=== PATIENT | female | born 1935 | race Caucasian/White ===

== ENCOUNTER 2019-07-01 16:57 | Inpatient (IN) ==
--- NOTE | 2019-07-01 18:09 | PROVIDER DOCUMENTATION ---
HPI-General Adult - General Chief Complaint: Constipation Stated Complaint: SYNCOPE, CONSTIPATION, SHOWING SIGNS OF PAIN, Time Seen by Provider: 07/01/19 17:58 Source: family Allergies/Adverse Reactions: Patient Allergies Allergy/AdvReac Type Severity Reaction Status Date / Time Iodinated Contrast Media Allergy Unknown Unknown Verified 07/01/19 20:16 diazepam [From Valium] Allergy Unknown Verified 07/01/19 20:16 erythromycin base Allergy Unknown Verified 07/01/19 20:16 gabapentin [From Neurontin] Allergy Unknown Verified 07/01/19 20:16 hydroxychloroquine sulfate * Allergy Unknown Verified 07/01/19 20:16 [From Plaquenil] oxcarbazepine Allergy Unknown Verified 07/01/19 20:16 [From Trileptal] prochlorperazine edisylate * Allergy Unknown Verified 07/01/19 20:16 [From Compazine] prochlorperazine maleate * Allergy Unknown Verified 07/01/19 20:16 [From Compazine] promethazine HCl * Allergy Unknown Verified 07/01/19 20:16 [From Phenergan] Sulfa (Sulfonamide Allergy Unknown Verified 07/01/19 20:16 Antibiotics) Tetracyclines Allergy Unknown Verified 07/01/19 20:16 donepezil HCl * AdvReac Unknown Verified 07/01/19 20:16 [From Aricept] triamterene AdvReac Unknown Verified 07/01/19 20:16 Home Medications: Home Medication List Medication Instructions Recorded Confirmed Last Taken Type Apixaban [Eliquis] 2.5 mg PO DAILY 07/01/19 07/01/19 Unknown History Cholecalciferol (Vitamin D3) 1 cap PO DAILY 07/01/19 07/01/19 Unknown History [Vitamin D3] Cyanocobalamin (Vitamin B-12) 1,000 mg PO DAILY 07/01/19 07/01/19 Unknown History [Vitamin B12] Magnesium Oxide [Magnesium] 400 mg PO DAILY 07/01/19 07/01/19 Unknown History Melatonin 1 mg PO QPM 07/01/19 07/01/19 Unknown History - History of Present Illness -Gen Adult Nature of Presenting Problems: 83 YOF WITH PMH OF SEVERE DEMENTIA PRESENTS WITH MULTIPLE COMPLAINTS, CONSTIPATION X 3 DAYS, FEVER, EPISODE OF HYPOTENSION AND PRESYNCOPE BP NOTED AT HOME TO BE 60S/40S. THE PATIENT IS UNABLE TO COMMUNICATE DUE TO SEVERE DEMENTIA AND REPEATS "I JUST WANT MY BABY". 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 DAUGHTER ALSO REPORTS A FALL TODAY. NO LOC, PT IS ON BLOOD THINNER Location of Pain/Injury: reports: other (PATIENT UNABLE TO REPORT) Onset/Duration: reports: 3 days ago Timing: reports: still present Context/Activities at Onset: reports: none Modifying Factors: improves with: nothing Associated Symptoms: reports: denies symptoms Similar Symptoms Previously?: No Recently seen or treated by another doctor?: No Review of Systems - Adult - REVIEW OF SYSTEMS - ADULT ROS:: ROS per family Constitutional: reports: fever. denies: no symptoms reported, see HPI, chills, fatique, night sweats, weight gain, weight loss, other Eyes: reports: no symptoms reported. denies: see HPI, discharge, dry eyes, decreased vision, blurred vision, double vision, eye pain, redness, other Ears, Nose, Mouth & Throat: reports: no symptoms reported. denies: see HPI, ear discharge, ear pain, hearing loss, tinnitus, epistaxis, sinus problem, nose pain, loose teeth, mouth/dental pain, mouth swelling, hoarseness, throat pain, throat swelling, other Cardiovascular: reports: see HPI, irregular heart rate (HAS PPM), syncope (HOME BP PER DAUGHTER 60S/40S) Respiratory: reports: no symptoms reported. denies: see HPI, chronic cough, cough, dyspnea on exertion, excessive sputum production, hemoptysis, pleurisy, shortness of breath, wheezing, other Gastrointestinal: reports: constipation. denies: no symptoms reported, see HPI, abdominal pain, hematemesis, diarrhea, difficulty swallowing, frequent heartburn, nausea, poor appetite, rectal bleeding, vomiting, other Genitourinary: reports: no symptoms reported. denies: see HPI, dysuria, discharge, frequency, flank pain, frequent UTI's, hematuria, hesitency, incontinence, urinary retention, urgency, other Musculoskeletal: reports: no symptoms reported. denies: see HPI, bone pain, back pain, frequent leg cramps, joint pain, joint swelling, muscle aches, muscle weakness, neck pain, other Integumentary: reports: no symptoms reported. denies: see HPI, hives, hair loss, itching, mole changes, nail changes, rash, skin sores/ulcer, skin thickening, other Neurological: reports: no symptoms reported. denies: see HPI, ataxia, dizziness/vertigo, headache/migraines, loss of balance, numbness, paresthesia, seizure, slurred speech, syncope, tremors, other Psychiatric: reports: no symptoms reported. denies: see HPI, anxiety, anti- depressant use, alcohol/drug dependence, depression, emotional problems, insomnia, panic attacks, suicidal thoughts, other Endocrine: reports: no symptoms reported. denies: see HPI, change in skin pigment, excessive sweating, goiter, cold intolerance, heat intolerance, increased hunger, increased thirst, polyuria, other Hematologic/Lymphatic: reports: no symptoms reported. denies: see HPI, blood clots, easy bruising, low blood count, lymphedema, prolonged bleeding, swollen lymph nodes, transfusions, other Allergic/Immunologic: reports: no symptoms reported. denies: see HPI, allergic reactions, allergic rhinitis, asthma, eczema, food allergy, frequent infections, hay fever, hives, positive PPD, urticaria, other Past History - Adult - PAST MEDICAL HISTORY-ADULT Review of Records: reports: Nursing Assessment Review, Social history reviewed & non-contributory. Major Childhood Illnesses: reports: denies history Gastrointestinal: reports: pancreatitis Neurological: reports: dementia Other Conditions: reports: other cancer (skin, breast) - PRIOR SURGERIES/PROCEDURES Surgical/Procedure History: reports: hysterectomy, other (mastectomy, bladder repair) - IMMUNIZATION STATUS Childhood Immunizations: See Nurse Assessment Flu Vaccine: See Nurse Assessment Physical Exam-General - PHYSICAL EXAM-ADULT Initial Vital Signs Reviewed: Yes - CONSTITUTIONAL General Appearance: alert, no apparent distress - EYES Eyes: PERRL/EOMI, pink conjunctivae - HEAD, EARS, NOSE, MOUTH & THROAT HENMT: normocephalic/atraumatic, moist mucous membranes - NECK Neck: non-tender, full range of motion, supple - RESPIRATORY Respiratory: chest non-tender, lungs clear, normal breath sounds, no pleuratic chest pain, no respiratory distress, no accessory muscle use - CARDIOVASCULAR Cardiovascular: normal peripheral pulses, no edema, no gallop, no JVD, no murmur - GASTROINTESTINAL (ABDOMEN) Abdominal Exam: non tender, soft - LYMPHATIC Lymphatic: no adenopathy - MUSCULOSKELETAL Back Exam: normal inspection Extremity: non-tender. negative: normal gait (IN WHEELCHAIR) Peripheral Pulses: radial (R): 2+, radial (L): 2+ - SKIN Integumentary: normal color, normal turgor, warm/dry - NEUROLOGIC Neurologic: grossly normal - PSYCHIATRIC Psych/Mental Status: normal mood/affect, disoriented x 3 Progress - PLAN OF CARE/RESULTS Progress/Plan/Lab Results: Vital Signs - 8 hr 07/01/19 17:17 Temperature 99.7 F H Pulse Rate 93 H Respiratory Rate 18 Blood Pressure 157/89 O2 Sat by Pulse Oximetry 100 Orders Category Date Time Status CT HEAD W/O CONTRAST [CT] Stat Exams 07/01/19 18:03 Ordered FLAT/UPRIGHT ABD/1 VIEW CHEST [RAD] Stat Exams 07/01/19 17:24 Ordered CBC WITH ELECTRONIC DIFF [HEME] Stat Lab 07/01/19 18:03 Uncollected CK PROFILE [SP CHEM] Stat Lab 07/01/19 18:04 Ordered COMPREHENSIVE METABOLIC PANEL [CHEM] Stat Lab 07/01/19 18:03 Uncollected TROPONIN T Stat Lab 07/01/19 18:[address] W/POSS RFLX CULT [URINALYSIS] Stat Lab 07/01/19 17:24 Uncollected EKG [EKG] Stat Ther 07/01/19 18:03 Ordered Result Diagrams: 07/01/19 19:07 07/01/19 19:07 - XRAY 1 XRAY Study: Abdomen Impression: See EMR Report ( EXAM: FLAT/UPRIGHT ABD/1 VIEW CHEST 07/01/2019 HISTORY: constipation fever TECHNIQUE: Flat and upright abdomen with AP chest COMMENT: The heart size is enlarged. There are some fibrotic appearing opacities present in the lung bases particularly on the right which have not changed since 12/31/2018. There is stool throughout much of the colon. The stomach is not distended. There is no evidence of small bowel dilatation. There has been cholecystectomy. No evidence of organomegaly or mass is present. IMPRESSION: Constipation. Electronically signed by Massimo Mckeon 07/01/2019 6:57 PM 07/01/19 670 Interpreting Physician: Massimo Mckeon MD Dictated Date/Time: 07/01/19 3397 cc: Talat Eden MD; Dayday Vargas MD) - CT/MRI 1 CT Study: Head Impression: See EMR Report (EXAM: CT HEAD W/O CONTRAST 07/01/2019 HISTORY: FALL TECHNIQUE: This exam was performed using automated exposure control, adjustment of mA or kV according to patient size, and/or use of iterative reconstruction technique. COMMENT: There is no evidence of mass effect, bleed, or abnormal extra-axial fluid collection. There is moderate cerebral atrophy. There is generalized periventricular white matter lucency. These findings were also present on 02/05/2019. The paranasal sinuses are clear. The calvarium is intact. IMPRESSION: Stable CT of the head. Electronically signed by Massimo Mckeon 07/01/2019 6:44 PM 07/01/191843 Interpreting Physician: Massimo Mckeon MD Dictated Date/Time: 07/01/191841 cc: Beth Nance; Dayday Vargas MD) - CONSULTS/PCP/HOSPITALIST Notification #1 *Consult/PCP/Hospitalist*: dr pandey Time Discussed: 21:10 Consult Disposition: Admit Departure - Departure Date of Disposition Decision: 07/01/19 Time of Disposition Decision: 21:10 DIAGNOSIS: UTI (urinary tract infection), Constipation, Dementia Disposition: HOME 01 Certified Medical Emergency: Emergent Condition: Fair Referrals and Follow-Ups: Dayday Vargas MD [Primary Care Provider] - - Critical Care Note This patient required my direct & personal management of CC.: No Attestation - Physician/ EDWARD Attestation Patient care was provided by Advanced Practice Provider:: Yes Advanced Practice Provider:: Beth Nance Advanced Practice Provider documentation review:: The Mid-level provider documentation, treatment plan and medical decision making was reviewed by the physician who agrees with all treatment and medical decision making by the MLP. The physician spent face to face time with patient:: No Advanced Practice Provider documentation review:: Supervising physician onsite and consulted in the evaluation and care of this patient. The physician did not have a face to face encounter with the patient.
--- NOTE | 2019-07-01 18:47 | Diag Imaging Result Doc PS360 ---
EXAM: CT HEAD W/O CONTRAST 07/01/2019 HISTORY: FALL TECHNIQUE: This exam was performed using automated exposure control, adjustment of mA or kV according to patient size, and/or use of iterative reconstruction technique. COMMENT: There is no evidence of mass effect, bleed, or abnormal extra-axial fluid collection. There is moderate cerebral atrophy. There is generalized periventricular white matter lucency. These findings were also present on 02/05/2019. The paranasal sinuses are clear. The calvarium is intact. IMPRESSION: Stable CT of the head. Electronically signed by Massimo Mckeon 07/01/2019 6:44 PM
--- NOTE | 2019-07-01 19:00 | Diag Imaging Result Doc PS360 ---
EXAM: FLAT/UPRIGHT ABD/1 VIEW CHEST 07/01/2019 HISTORY: constipation fever TECHNIQUE: Flat and upright abdomen with AP chest COMMENT: The heart size is enlarged. There are some fibrotic appearing opacities present in the lung bases particularly on the right which have not changed since 12/31/2018. There is stool throughout much of the colon. The stomach is not distended. There is no evidence of small bowel dilatation. There has been cholecystectomy. No evidence of organomegaly or mass is present. IMPRESSION: Constipation. Electronically signed by Massimo Mckeon 07/01/2019 6:57 PM
[2019-07-01 19:17] LABS: BASO# 0.01 X1000 (0.0-0.2); BASO% 0.1 % (0.0-0.8); HEMATOCRIT 41.6 % (37.0-47.0); HEMOGLOBIN 13.4 g/dL (12.0-16.0); IMM GRAN# 0.02 X1000 (0.0-0.04); IMM GRAN% 0.3 % (0.0-0.5); LYMPH# 1.05 X1000 (1.2-3.4); LYMPH% 15.7 % (20.5-51.1); MCH 30.9 PG (27-31); MCHC 32.2 g/dL (33-37); MCV 96.1 FL (81-99); MONO% 7.5 % (1.7-9.3); MPV 10.3 FL (7.4-10.4); NEUT% 76.4 % (42.2-75.2); PLT 194 X1000 (130-400); RBC 4.33 XMIL (4.2-5.4); RDW 14.4 % (11.5-14.5); WBC 6.68 X1000 (4.8-10.8)
[2019-07-01 19:40] LABS: AGAP 9; ALBUMIN 4.1 g/dL (3.5-5.0); ALKALINE PHOSPHATASE 97 U/L (32-104); BUN 13 mg/dL (8-22); CALCIUM 9.3 mg/dL (8.8-10.2); CHLORIDE 105 mmol/L (98-107); CK PROFILE 129 U/L (24-173); COSMO 278; CREATININE 0.4 mg/dL (0.5-0.9); ESTIMATED GFR > 60; GLUCOSE 136 mg/dL (70-104); GOT 28 U/L (10-30); GPT 35 U/L (10-36); POTASSIUM 4.2 mmol/L (3.5-5.1); SODIUM 138 mmol/L (136-145); TCO2 24 mmol/L (25-35); TOTAL PROTEIN 7.3 g/dL (6.3-8.3)
[2019-07-01 20:44] LABS: BILIRUBIN URINE NEGATIVE (NEGATIVE); BLOOD URINE 3+ (NEGATIVE); CLARITY VERY CLOUDY (CLEAR); COLOR YELLOW; GLUCOSE URINE NEGATIVE (NEGATIVE); KETONE URINE TRACE mg/dL (NEGATIVE); LEUKOCYTES URINE 2+ (NEGATIVE); NITRITE URINE POSITIVE (NEGATIVE); PH URINE 6.5; PROTEIN URINE TRACE mg/dL (NEGATIVE); SP GRAVITY URINE 1.015; UROBILINOGEN URINE NORMAL
[2019-07-01 20:45] LABS: URINE BACTERIA 4+ /HFP; URINE EPITHELIAL CELLS <10 /HPF (<10); URINE SOURCE CATH
[2019-07-01] MEDS ORDERED: ROCEPHIN 1 GM in NS 50 ML IV ONE (21:07)
[2019-07-01] MEDS ORDERED: NS 1,000 ML IV ONE (21:11)
--- NOTE | 2019-07-01 22:48 | EKG Report ---
Test Performed on : 07/01/2019 8:13:55 PM Test Reason : SYNCOPAL EPISODE Blood Pressure : / mmHG Vent. Rate : 080 BPM Atrial Rate : 082 BPM P-R Int : 000 ms QRS Dur : 070 ms QT Int : 366 ms P-R-T Axes : 000 029 082 degrees QTc Int : 422 ms Accelerated Junctional rhythm. Minimal voltage criteria for LVH, may be normal variant Septal infarct , age undetermined Abnormal ECG No previous ECGs available Unconfirmed Result
[2019-07-02] MEDS ORDERED: TYLENOL PO PRN (08:00)
[2019-07-02] MEDS ORDERED: ZOFRAN IV PRN (08:00)
[2019-07-02] MEDS ORDERED: DULCOLAX PR ONE (08:32)
--- NOTE | 2019-07-02 08:57 | Diag Imaging Result Doc PS360 ---
EXAM: ANKLE 2 VIEWS LEFT - 07/02/2019 HISTORY: swelling TECHNIQUE: Portable left ankle two views COMPARISON: None. FINDINGS: There is soft tissue swelling over the ankle. There is no fracture or dislocation identified. There are no erosive or destructive changes identified. There are possibly mild degenerative changes. There are vascular calcifications noted. IMPRESSION: Soft tissue swelling. No visible acute bony abnormality. Electronically signed by Ashok Abbasi 07/02/2019 8:54 AM
--- NOTE | 2019-07-02 09:45 | EKG Report ---
Test Performed on : 07/02/2019 09:35:59 AM Test Reason : morenoal germán Blood Pressure : / mmHG Vent. Rate : 060 BPM Atrial Rate : 250 BPM P-R Int : 170 ms QRS Dur : 078 ms QT Int : 440 ms P-R-T Axes : 033 032 054 degrees QTc Int : 440 ms Atrial-paced rhythm Minimal voltage criteria for LVH, may be normal variant Abnormal ECG When compared with ECG of 01-JUL-2019 20:13, (Unconfirmed) Electronic atrial pacemaker has replaced Junctional rhythm. Confirmed by Anibal Eng MD ([id number]) on 07/07/2019 7:50:31 AM
--- NOTE | 2019-07-02 09:53 | Vascular Study Report ---
EXAM: Venous U/S Bilateral Legs - 07/02/2019 HISTORY: LE swelling; hx of dvt TECHNIQUE: Bilateral lower extremity Doppler venous ultrasound COMPARISON: 12/25/2015 FINDINGS: The left superficial femoral vein demonstrates filling defect, with decreased flow and decreased compressibility. This is compatible with thrombus. The remainder of the deep veins of left lower extremity demonstrate flow and compressibility, without filling defects. The deep veins of the right lower extremity demonstrate flow and compressibility, without filling defects. IMPRESSION: Deep venous thrombosis in the left superficial femoral vein. No evidence of right lower extremity deep venous thrombosis. Electronically signed by Ashok Abbasi 07/02/2019 9:50 AM
--- NOTE | 2019-07-02 11:53 | HISTORY AND PHYSICAL ---
PRIMARY CARE PROVIDER: Dr. Dayday Vargas. DOOR MANAGER: [facility] [place]. CHIEF COMPLAINT: Fall, low blood pressure. HISTORY OF PRESENT ILLNESS: Ms. Bren Nava is an 83-year-old female with a medical history of end-stage dementia that she has had at least 6 or 7 years. She is verbal, but never oriented. She was at her normal baseline mentation up until yesterday morning when she was awoke. She was more moaning and groaning, and the family felt like she was having more constipation and pain from that. She had a Cardiology appointment that she went to yesterday evening for a pacemaker check. She, prior to that, had been given a suppository by her caregiver, which she did have a bowel movement, but it was small, and apparently had gotten up, had a blood pressure that dropped to the 60s/40s, and fell out, did not hit her head, so she was brought to the emergency department, where she was found to have a significant urinary tract infection, currently positive gram-negative rods, being treated with Rocephin. Also noted that there is more swelling in the left leg, and pain in the left ankle, but the left ankle only showed soft tissue swelling. No fracture. An ultrasound showed that she had an old DVT in the left femoral superficial vein, which she is on Eliquis for. It is also noted that she has a contracted right upper extremity that has been that way for a few years. Never officially diagnosed with stroke, and her head CT that was performed did not show any acute findings, but it only showed chronic findings reported as moderate cerebral atrophy. She is able to walk around at home normally, and usually has someone that walks with her to keep her from losing her balance. She is very active. She does not stay in bed very often. She actually walks the house frequently. She does have issues with constipation, for which the x-ray shows she is constipated, which we will start something for that as well. Normally eats a pureed diet. Will get that started. Otherwise, will be treating her for the significant urinary tract infection. Will also check her blood pressure orthostatics to evaluate if she still having orthostatic hypotension. PAST MEDICAL HISTORY: 1. End-stage dementia for 6 to 7 years. No medication for this. 2. Left breast cancer with a mastectomy in 1987. 3. Skin cancer on the nose that was removed. 4. Pancreatitis in the past. 5. Hypertension. 6. History of bradycardia with pacemaker placement. 7. 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 8. Left femoral superficial DVT since 2018. 9. Diverticulosis. PAST SURGICAL HISTORY: 1. Hysterectomy. 2. Left mastectomy in 1987. 3. Bladder repair post baby deliveries. 4. Skin cancer excision. SOCIAL HISTORY: Lives with her daughter for the last 4 years. Never smoked, never drank, never did illicit drugs. Is able to walk with minimal assistance, and is very active, and is able to eat without difficulties as well. Apparently, she does have to be fed though, a pureed diet. FAMILY HISTORY: Mother had gastrointestinal issues. She at 81. Her father had [place], and in his 60s. ALLERGIES: Iodine, diazepam, erythromycin, Neurontin, Plaquenil, Trileptal, Compazine, Phenergan, sulfa drugs, tetracyclines, Aricept, and triamterene. HOME MEDICATIONS: 1. Eliquis 2.5 mg p.o. daily. 2. Vitamin D3 one p.o. daily. 3. Vitamin B12, 1000 mg p.o. daily. 4. Magnesium oxide 400 mg p.o. daily. 5. Melatonin 1 mg p.o. nightly. REVIEW OF SYSTEMS: Unable to obtain as the patient is unable to verbalize her needs. PHYSICAL EXAMINATION: VITAL SIGNS: Temperature 99.7 degrees, heart rate 58, respiratory rate 16, blood pressure 139/46, O2 saturation 96% on room air. GENERAL: Ms. Bren Nava is an 83-year-old female. She will look at speaker who says her name, but has random responses to questions. HEENT: Atraumatic, normocephalic. Pupils are equal and reactive. Unable to assess for extraocular movements as she does not follow commands. Oral airway is dry. NECK: Trachea midline. CARDIOVASCULAR: S1, S2. Regular rate and rhythm. No rubs, gallops, murmurs. Swelling in the left ankle, but essentially no edema. There are +2 dorsalis and radial pulses. Negative JVD or carotid bruits. PULMONARY: Clear to auscultation. Bilateral breath sounds. No accessory muscle use or work of breathing noted. GASTROINTESTINAL: Soft, nontender, nondistended. Positive bowel sounds x4. EXTREMITIES: Right arm contracted with some movement. Movement in all the other extremities appears to be equal, but she will not follow commands. She does have spontaneous movements of all other extremities. NEUROLOGIC: Not oriented, confused conversation or conversation that is consistent with end-stage dementia. SKIN: Warm, dry, intact, except for left forearm. There are 2 spots. One looks like a little small hematoma, and the other one looks like a very small skin tear. No signs of infection on that. LABORATORY DATA: White blood cells 6000, hemoglobin 13, hematocrit 41, platelet count 194,000. Sodium 138, potassium 4.2, BUN 13, creatinine 0.4, glucose 136, calcium 9.3. Bilirubin 0.30, AST 28, ALT 35. CK 129. Troponin less than 0.01. Albumin 4.1. Plasma lactate 1.0. Urinalysis: Very cloudy, trace protein, 3+ blood, positive nitrites, 10 to 20 microscopic red blood cells, 2+ white blood cells, microscopic white blood cells 10 to 20, bacteria 4+. IMAGING: Abdominal x-ray: Constipation. Head CT: Stable head CT. No acute. It did show moderate cerebral atrophy. Ankle x-ray on the left: Soft tissue swelling. No visible acute bony abnormality. Venous ultrasound: DVT in the left superficial vein. No evidence of right lower extremity DVT. EKGs: This one says accelerated junctional rate of 80, QTc 422. Repeat for today shows atrially paced rhythm, rate 60, QTc 440. ASSESSMENT AND PLAN: 1. Fall, likely secondary to either vasovagal or orthostatic hypotension. Will get orthostatic vital signs every 12 hours to evaluate, and will also give her some intravenous fluid hydration. She is not on any medications that would initiate this type of symptom. She did receive a suppository, so it could have been where she bear down and it caused that, which caused a fall. She did not hit her head, but head CT was negative for any acute findings. 2. Left ankle pain after fall yesterday. Imaging is negative for any injury as far as fractures, but there is soft tissue swelling. 3. Left superficial femoral vein deep venous thrombosis that is old in appearance. She is on Eliquis, and will continue that. 4. Constipation. No bowel movement in 4 days, except she did have a small one yesterday. Will give a bisacodyl suppository. Will also start MiraLAX daily. 5. Urinary tract infection, already with gram-negative rods growing, most likely is probably Escherichia coli, but again, she is on Rocephin for this. 6. Hypertension, but no home medications. 7. History of bradycardia with pacemaker in place. 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 8. History of diverticulitis with diverticulosis. No abdominal complaints at this time, just with constipation. 9. Deep venous thrombosis prophylaxis. Sequential compression devices, but is on Eliquis as well. 10. Dementia, end-stage. Will do physical therapy, nutritional consult, try to fix her back to her normal sleep/awake cycle, and encourage activity again. Currently, she is not on any medications for this, but per the family request, they wish for a very low- sugar diet, which we will do that. Dictated by TIRSO Ozuna for Samuel Sahni MD Addendum: Patient seen and examined by myself. Agree with TIRSO note. It reflects my assessment and plan. Patient is being admitted to hospital for syncope that looks to be vasovagal. Will monitor patient closely. She also has UTI but culture is pending. Will continue with Rocephin. Will continue with Eliquis for DVT. cc: TIRSO Ozuna MD Micah A. Howard, MD MTDD
[2019-07-02] MEDS: VITAMIN D PO SCH (12:41)
[2019-07-02] MEDS: MAG-OX PO SCH (12:41)
[2019-07-02] MEDS: ELIQUIS PO SCH (12:41)
[2019-07-02] MEDS: ROCEPHIN 1 GM in NS 50 ML IV SCH (12:41)
[2019-07-02] MEDS: VITAMIN B-12 PO SCH (12:41)
[2019-07-02] MEDS: MIRALAX PO SCH (12:42)
[2019-07-02] MEDS ORDERED: MELATONIN PO SCH (21:00)
[2019-07-03 06:02] LABS: EOS# 0.08 X1000 (0.0-0.7); EOS% 1.6 % (0.0-10.0); HEMATOCRIT 36.8 % (37.0-47.0); HEMOGLOBIN 11.6 g/dL (12.0-16.0); IMM GRAN# 0.01 X1000 (0.0-0.04); IMM GRAN% 0.2 % (0.0-0.5); LYMPH# 1.25 X1000 (1.2-3.4); LYMPH% 25.5 % (20.5-51.1); MCH 30.1 PG (27-31); MCHC 31.5 g/dL (33-37); MCV 95.6 FL (81-99); MONO% 10.2 % (1.7-9.3); MPV 10.6 FL (7.4-10.4); NEUT# 3.07 X1000 (1.4-6.5); NEUT% 62.5 % (42.2-75.2); PLT 154 X1000 (130-400); RBC 3.85 XMIL (4.2-5.4); RDW 14.2 % (11.5-14.5); WBC 4.91 X1000 (4.8-10.8)
[2019-07-03 06:04] LABS: AGAP 10; ALKALINE PHOSPHATASE 70 U/L (32-104); BUN 12 mg/dL (8-22); CALCIUM 8.8 mg/dL (8.8-10.2); CHLORIDE 101 mmol/L (98-107); COSMO 272; CREATININE 0.4 mg/dL (0.5-0.9); ESTIMATED GFR > 60; GLUCOSE 102 mg/dL (70-104); GOT 18 U/L (10-30); GPT 20 U/L (10-36); MAGNESIUM 1.6 mg/dL (1.5-2.7); POTASSIUM 3.6 mmol/L (3.5-5.1); SODIUM 136 mmol/L (136-145); TCO2 25 mmol/L (25-35); TOTAL PROTEIN 6.1 g/dL (6.3-8.3)
[2019-07-03 07:45] VITALS: BP 128/61
--- NOTE | 2019-07-03 08:54 | EKG Report ---
Test Performed on : 07/03/2019 08:23:08 AM Test Reason : syncope Blood Pressure : / mmHG Vent. Rate : 060 BPM Atrial Rate : 060 BPM P-R Int : 164 ms QRS Dur : 084 ms QT Int : 440 ms P-R-T Axes : 026 038 032 degrees QTc Int : 440 ms Atrial-paced rhythm Abnormal ECG When compared with ECG of 02-JUL-2019 09:35, (Unconfirmed) No significant change was found Confirmed by Anibal Eng MD ([id number]) on 07/07/2019 7:49:51 AM
[2019-07-03] MEDS: MAG-OX PO SCH ×2 (10:03→10:04)
[2019-07-03] MEDS: ROCEPHIN 1 GM in NS 50 ML IV SCH (10:05)
[2019-07-03] MEDS: VITAMIN B-12 PO SCH (10:05)
[2019-07-03] MEDS: ELIQUIS PO SCH (10:05)
[2019-07-03] MEDS: VITAMIN D PO SCH (10:05)
[2019-07-03] MEDS: MIRALAX PO SCH (10:05)
--- NOTE | 2019-07-04 14:35 | DISCHARGE SUMMARY ---
ADMISSION DATE: 07/02/2019 DISCHARGE DATE: 07/03/2019 ADMISSION DIAGNOSIS: 1. Fall. 2. Left ankle pain after fall. 3. 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 4. Constipation. 5. Urinary tract infection with Citrobacter that is pansensitive. 6. Hypertension. 7. History of bradycardia with pacemaker. 8. History of diverticulitis and diverticulosis, none now. 9. Dementia end-stage, stable. DISCHARGE DIAGNOSIS: 1. Recent fall, felt to be a vasovagal orthostatic hypotension episode, resolved. 2. Left ankle pain after fall that was ruled out for injury of the bone. 3. Reported old left superficial femoral vein DVT, is on Eliquis already. 4. Constipation. That also resolved. She had a bowel movement while she was here. 5. Urinary tract infection that was positive for Citrobacter, is on antibiotics. 6. Dementia, stable. HOSPITAL COURSE: Ms. Bren Nava is an 83-year-old end-stage dementia patient. She has had it for at least 6 or 7 years, verbal, but not oriented, presented after a fall that was likely syncopal secondary to orthostatic hypotension or vasovagal episode. She was also trying to have a bowel movement, so could have been vasovagal. Apparently, she was given a suppository by her caregiver to have a bowel movement as she had not had one in 4 days. Her blood pressure dropped to the 60s over 40s. 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 She had orthostatic vital signs performed but those were normal. She will be discharged home. DISCHARGE VITAL SIGNS: Temperature 98.0 degrees, heart rate 61, respiratory rate 20, blood pressure 128/61, O2 saturation 99% on room air. LABORATORY DATA: White blood cells 4000, hemoglobin 11, hematocrit 36, platelet count 154,000. Sodium 136, potassium 3.6, BUN 12, creatinine 0.4, glucose 102, calcium 8.8, magnesium 1.5, bilirubin 0.50, AST 18, ALT 20, albumin 3.0. Urine culture is Citrobacter koseri, pansensitive. Blood cultures prelim are negative. IMAGING: Abdominal x-ray, constipation. Head CT was stable. Ankle x-ray on the left ankle showed soft tissue swelling but no fractures. Lower extremity ultrasound showed DVT of the left superficial femoral vein. EKG on admission showed accelerated junctional but it was actually sinus. Another repeat EKG showed atrial paced rhythm, rate of 60, QTc is 440. DISCHARGE MEDICATIONS: 1. Eliquis 2.5 mg p.o. twice daily. 2. Magnesium oxide 400 mg p.o. daily. 3. Melatonin 1 mg p.o. nightly. 4. Vitamin B12 1000 mg p.o. daily. 5. Vitamin D3, 1000 units p.o. daily. 6. Cephalexin 500 mg p.o. t.i.d. DISCHARGE ACTIVITY: As tolerated. DIET: Pureed. DISCHARGE INSTRUCTIONS: If her condition changes, contact physician and/or return to the emergency department. Changes may include, but are not limited to shortness of breath, increased fatigue, excessive bleeding, unexplained weight loss or gain, unimaginable pain, signs or symptoms of infection. DISCHARGE DISPOSITION: Home. Dictated by TIRSO Ozuna for Samuel Sahni MD Addendum: Patient seen and examined by myself. Agree with TIRSO note. It reflects my assessment and plan. Patient is being released in stable condition to home. Will be seen by PCP in a week. cc: TIRSO Ozuna MD [facility]
== END 2019-07-03 13:29 | disposition home or self-care (01) | DRG 312 ==
LOC: P.ED 16:57 → SUATTDRO 22:29 → P.MEDSURG 22:29
PROVIDERS: ATTEND Internal Medicine